=== PATIENT | male | born 2000 | race Caucasian/White ===

== ENCOUNTER 2022-07-08 17:40 | Emergency (ER) | payer OTHER, SELFPAY ==
[2022-07-08 17:44] VITALS: BP 153/91; PULSE 73; RESP 16; TEMP 36.2; O2SAT 100
--- NOTE | 2022-07-08 18:07 | ED.EYEPROB ---
HPI - Eye Problem General Chief complaint: Eye Problems Stated complaint: left eye pain Time Seen by Provider: 07/08/22 17:43 History of Present Illness HPI Narrative: 22-year-old male presents to the emergency room complaints of left eye pain. Patient states that he was outside and experienced foreign object strike middle of night. Patient is unable to open his eye and due to the discomfort. Patient states he is photophobic. Related Data Allergies Allergy/AdvReac Type Severity Reaction Status Date / Time No Known Allergies Allergy Mild Verified 10/09/09 10:10 Review of Systems Review of Systems: CONSTITUTIONAL: Denies fever, chills, or sweats. EYES: Reports visual changes left eye ENT: Denies rhinorrhea, congestion, sore throat, or otalgia. CARDIOVASCULAR: Denies chest pain, palpitations, or edema. RESPIRATORY: Denies cough or dyspnea. GASTROINTESTINAL: Denies abdominal pain, nausea, vomiting, or diarrhea. GENITOURINARY: Denies dysuria or hematuria. SKIN: Denies rash or itching. MUSCULOSKELETAL: Denies back pain, joint pain, or myalgia. NEUROLOGIC: Denies headache, numbness, dizziness, or weakness. PSYCHIATRIC: Denies anxiety or depression. Exam Narrative: GENERAL: Well-appearing, well-nourished, no physical limitations, and in no acute distress. HEAD: Normocephalic, atraumatic. EYES: CHEST: Clear to auscultation. No respiratory distress. No wheezes rales or rhonchi. HEART: Regular rate and rhythm. No murmur heard. Normal peripheral pulses. EXTREMITIES: Normal range of motion. No edema. No clubbing or cyanosis SKIN: Warm, dry, no rash. No noted wounds NEURO: No focal deficits. Alert and oriented x3. MAEW. CN's II-XI intact bilaterally, normal gait PSYCH: Cooperative. Normal mood and affect. Course Course Emergency Course: Left eye anesthetized with tetracaine. Fluorescein applied. Corneal abrasion noted from the 4:00 to 6 o'clock position over the conjunctiva. No foreign body noted. Vital Signs Vital signs: Vital Signs Temperature 36.2 C L 07/08/22 17:44 Pulse Rate 73 07/08/22 17:44 Respiratory Rate 16 07/08/22 17:44 Blood Pressure 153/91 H 07/08/22 17:44 Pulse Oximetry 100 07/08/22 17:44 Oxygen Delivery Room Air 07/08/22 17:44 Temperature 36.2 C L 07/08/22 17:44 Pulse Rate 73 07/08/22 17:44 Respiratory Rate 16 07/08/22 17:44 Blood Pressure 153/91 H 07/08/22 17:44 Pulse Oximetry 100 07/08/22 17:44 Oxygen Delivery Room Air 07/08/22 17:44 Discharge Plan Discharge Clinical Impression: Corneal abrasion Patient Disposition: Home, Self-Care Condition: Stable Instructions: Antibiotic Form, Corneal Abrasion (ED) Additional Instructions: Take Tylenol and ibuprofen as needed for discomfort. Your symptoms should improve in the next 1 to 2 days. Prescriptions: New ciprofloxacin HCl 0.3 % drops See Rx Instructions .ROUTE .COMPLEX Qty: 2.5 0RF Rx Instructions: put 1-2 drps in affected eye(s) every 2hr up to 8 times/day x2days; then 4 times/day x5days Follow-up/Referrals: PHYSICIAN,[facility]ELD ROUSTABOUT [Primary Care Provider] - Time of Disposition: 18:25
[2022-07-08] MEDS: TETANUS,DIPHTHERIA,AC PERTUSSIS ADULT (0.5 ML) BOOSTRIX IM (18:30)
== END 2022-07-08 18:57 | disposition home or self-care (01) ==
LOC: ANHED 18:49
PROVIDERS: Emergency Provider Nurse Practitioner Family
DX: S05.02XA Injury of conjunctiva and corneal abrasion without foreign body, left eye, initial encounter (principal); Z23 Encounter for immunization; W22.8XXA Striking against or struck by other objects, initial encounter
CPT/HCPCS: 90471; 90715; 99283; A9270